=== PATIENT | female | born 1940 | race Caucasian/White ===

== ENCOUNTER → 2023-05-30 06:54 | Outpatient (REF) | payer MEDICARE, OTHER, SELFPAY | LOC: HWRAD 06:54 | PROVIDERS: ATTENDING PHYSICIAN Nurse Practitioner | DX: K59.09 Other constipation (principal); Z87.19 Personal history of other diseases of the digestive system | CPT/HCPCS: 76700 ==

== ENCOUNTER → 2023-09-21 11:32 | Outpatient (REF) | payer MEDICARE, OTHER, SELFPAY ==
[2023-09-21 12:29] LABS: % Basophils 0.8 % (0-2); % Eosinophils 5.1 % (0-6); % Immature Granulocytes 0.2 % (0-0.5); % Lymphocytes 44.8 % (20.5-51.1); % Monocytes 8.3 % (1.7-9.3); % Neutrophils 40.8 % (42.2-75.2); Absolute Basophils 0.1 10^3/uL (0-0.2); Absolute Eosinophils 0.3 10^3/uL (0-0.7); Absolute Lymphocytes 2.8 10^3/uL (1.2-3.4); Absolute Monocytes 0.5 10^3/uL (0.1-0.6); Absolute Neutrophils 2.6 10^3/uL (1.4-6.5); Hematocrit 37.7 % (37.0-47.0); Hemoglobin 12.3 g/dL (12.0-16.0); Mean Corp Hgb Conc. 32.6 g/dL (33.0-37.0); Mean Corpuscular Hgb 30.4 pg (27.0-31.0); Mean Corpuscular Volume 93.1 fL (81.0-99.0); Nucleated Red Blood Cells % 0 %; Platelet Count 275 10^3/uL (130-400); Red Blood Cell Count 4.05 10^6/uL (4.20-5.40); Red Cell Dist. Width 13.1 % (11.5-14.5); White Blood Cell Count 6.3 10^3/uL (4.8-10.8)
[2023-09-21 13:36] LABS: ALT (SGPT) 20 U/L (0-35); AST (SGOT) 39 U/L (14-36); Albumin 4.3 g/dl (3.5-5.0); Alkaline Phosphatase 119 U/L (38-126); Blood Urea Nitrogen 23 mg/dl (7-17); Calcium 9.3 mg/dl (8.4-10.2); Carbon Dioxide 30 mmol/L (22-30); Chloride 98 mmol/L (98-107); Glucose 87 mg/dl (70-99); Potassium 5.3 mmol/L (3.5-5.1); Sodium 136 mmol/L (135-145); Total Bilirubin 0.3 mg/dl (0.2-1.3); eGFR 55.21
[2023-09-21 14:00] LABS: TSH Reflex To Free T4 1.77 uIU/ml (0.47-4.68)
[2023-09-23 00:28] LABS: Endomysial IgA Antibody Titer <1:10 (<1:10)
[2023-09-24 00:16] LABS: IgA 172 mg/dl (70-400)
== END ==
LOC: REG 11:32
PROVIDERS: ATTENDING PHYSICIAN Internal Medicine Gastroenterology; FAMILY PHYSICIAN Internal Medicine
DX: R10.9 Unspecified abdominal pain (principal); K59.09 Other constipation
CPT/HCPCS: 36415; 80053; 82784; 83516; 84443; 85025; 86231

== ENCOUNTER → 2023-09-28 11:48 | Outpatient (REF) | payer MEDICARE, OTHER, SELFPAY | LOC: REG 11:48 | PROVIDERS: ATTENDING PHYSICIAN Internal Medicine Gastroenterology; FAMILY PHYSICIAN Internal Medicine | DX: R10.9 Unspecified abdominal pain (principal) | CPT/HCPCS: 82705; 83993; 89055 ==

== ENCOUNTER → 2023-11-21 16:54 | Outpatient (REF) | payer MEDICARE, OTHER, SELFPAY | LOC: RAD 16:54 | PROVIDERS: ATTENDING PHYSICIAN Nurse Practitioner; FAMILY PHYSICIAN Internal Medicine | DX: M54.31 Sciatica, right side (principal) | CPT/HCPCS: 72110 ==

== ENCOUNTER → 2023-11-29 06:43 | Day surgery (SDC) | payer MEDICARE, OTHER, SELFPAY | LOC: GI 06:43 | PROVIDERS: ATTENDING PHYSICIAN Internal Medicine Gastroenterology; FAMILY PHYSICIAN Internal Medicine | DX: R10.9 Unspecified abdominal pain (principal); Z53.8 Procedure and treatment not carried out for other reasons | CPT/HCPCS: 43235; G0378 ==

== ENCOUNTER 2023-11-29 10:16 | Emergency (ER) | payer MEDICARE, OTHER, SELFPAY ==
[2023-11-29 10:22] VITALS: BP 205/100
[2023-11-29 11:00] VITALS: BP 195/67
--- NOTE | 2023-11-29 11:00 | ED.GENMED ---
History of Present Illness
General
Chief Complaint: Blood Pressure Problem
Source: patient
Exam Limitations: none
Time Seen by Provider: 11/29/23 10:35
History of Present Illness
History of Present Illness:
83-year-old female scheduled for a colonoscopy today. Noted to have hypertension. Sent for further evaluation. Incidentally patient noted some intermittent left shoulder and upper scapular pain x 4 days. Not exertional. Nonpleuritic. No
shortness of breath or diaphoresis. Feels better moving her arm around. Symptoms have been constant of this left shoulder pain for the last 4 to 5 hours.
Past History
Past History
ED Past Medical History: HTN, Hypercholesterolemia, Other (Diverticulosis) and Other (IBS, dropfoot, vertigo)
ED Past Surgical History: None
Social History
Tobacco: Non-smoker
Alcohol: Occasional
Personal:
Employment: Retired
Family History
Family History: Other (Brother with a cardiomyopathy and pacemaker. Another brother with coronary disease)
Review of Systems
Review of Systems
All Other Systems: Not applicable
Constitutional: Denies fever or chills
Respiratory: Denies trouble breathing
Cardiac: Denies chest pain or syncope
Phy Exam
Physical Exam
Physical Exam:
GENERAL: Alert and oriented in no apparent distress
EYE: Orbits normal.
NECK: Supple, no thyroid palpable
ENT: Pharynx without erythema
CARDIAC: Regular rate and rhythm without any obvious murmurs.
LUNGS: Clear breath sounds,normal
ABDOMEN: Soft, without focal tenderness or distention
NEUROLOGICAL: Alert and oriented , grossly non-focal
SKIN: Warm and dry, no rash or lesion, no discoloration, skin intact.
MUSCULOSKELETAL: No edema,no deformity.Good color
PSYCH: Normal and appropriate interaction.
Course
Orders/Labs/Results
Orders:
Orders
11/29/23 10:32
Electrocardiogram (*1) Urgent
Reason for Study: Hypertension, Benign
EKG- Treatment ONCE
11/29/23 10:46
CT Chest Angio W/wo Iv Contras Urgent
Comment:
Reason For Exam: Nontraumatic left shoulder scapular pain/hypertens
Cardiac Monitoring- Treatment ONCE
IV Insert/Care/Rem.- Treatment PRN
Pulse Ox/cont/shift [RESP] Stat
Quantity: 1
11/29/23 10:50
Basic Metabolic Panel Urgent
Complete Blood Count/With Diff Urgent
Troponin I Urgent
11/29/23 14:26
CR Abdomen - 1 View Urgent
Comment:
Reason For Exam: Left hydronephrosis
Abnormal Lab Results
11/29/23
10:50
Glucose 118 H mg/dl
(70-99)
11/29/23 10:50
11/29/23 10:50
Vital Signs
Initial and Last Documented VS:
Initial Vital Signs
Temp Pulse Resp BP
98.8 F 97 16 205/100
11/29/23 10:22 11/29/23 10:22 11/29/23 10:22 11/29/23 10:22
Last Documented Vital Signs
Temp Pulse Resp BP Pulse Ox
98.8 F 72 16 186/62 97
11/29/23 10:22 11/29/23 13:30 11/29/23 13:30 11/29/23 13:00 11/29/23 13:30
*Critical Care Note
Total Time (30-74mins, 75-104mins- exclusive of procedures): Not Applicable
Update Note
Update Note:
Patient's ED testing is stable. He she has a mild left hydronephrosis on her CT of her chest. Doubt this has anything to do with her left shoulder pain. Shoulder pain based on history is very unlikely to be cardiac. It is not exertional she has
no shortness of breath diaphoresis nausea. It seems to be actually somewhat better when moving her arm in certain positions. She currently has none. However with her hypertension and vague symptoms does warrant cardiac follow-up. I had
recommended repeat troponin and EKG for completeness. Patient does not want to wait. She is aware of the risk. We will plug her into cardiac follow-up. Blood pressure still remains elevated. Again she does not want to wait for further
management of this but we will start her hydrochlorothiazide. Has been elevated prior and she was supposed to be on hydrochlorothiazide.
1515.... Patient returns from x-ray. She does have some delayed dye in the left kidney. She may have some partial obstruction although I am not convinced that the left shoulder pain is coming from her kidney. Patient does not want to wait for any
further testing. My recommendation was to start other blood pressure management here, repeat cardiac testing for completeness and do a plain CT of the abdomen and pelvis to evaluate for this hydronephrosis. Patient absolutely refuses to stay any
longer. She does not want me to give her any blood pressure medication. She states she will take her hydrochlorothiazide which she is supposed to be taking but has not been taking. We will also plug her into cardiology for close follow-up. She
is aware that I do not recommend she leave at this time and is aware of the risks
ED Attending Note
-
Portions of this chart may have been created with voice recognition software.� Occasional wrong word or��sound alike� substitutions may have occurred due to the inherent limitations of voice recognition software.
Discharge Plan
Departure
Patient Disposition: Home (Routine Discharge)
Date of Disposition: 11/29/23
Time of Disposition: 15:16
Patient with high blood pressure during this ER visit?: Yes
Discharge Problem:
Hypertension/systolic, Intermittent left shoulder pain, Left hydronephrosis
Instructions: High Blood Pressure (DC), Chest Pain [facility] Follow Up, BLOOD PRESSURE
Prescriptions:
No Action
chlorpheniramine maleate 4 MG tablet
4 mg PO DAILY
sertraline 50 MG tablet
50 mg PO DAILY
verapamil 120 MG tablet extended release
120 mg PO QPM
losartan 50 MG tablet
50 mg PO QPM
acetaminophen 325 MG tablet
650 mg PO Q4HPRN PRN (Reason: mild pain)
atorvastatin 20 MG tablet
20 mg PO QPM
polyethylene glycol 3350 17 GRAMS powder in packet
17 grams PO DAILY
aspirin 81 MG tablet,delayed release (DR/EC)
81 mg PO DAILY
Kareyacidoph, paracasei,B. lactis 1 EACH capsule
1 ea PO DAILY
Referrals:
Pallavi Dominguez MD [Family Provider] - Follow up in 2-3 days
Activity Restrictions/Additional Instructions:
Take your hydrochlorothiazide immediately when you get home.
Watch your blood pressure closely at home
You should get a call from cardiology first thing tomorrow morning for close follow-up
Return if you change your mind about further workup in the ER. Also return immediately with any unusual headache neurologic symptoms chest pain shortness of breath etc.
As we discussed, there is some dilatation of your left kidney. Cause unknown at this time. I would recommend an outpatient plain CAT scan of your abdomen and pelvis. This can be arranged through your primary physician
Interventions
Interventions:
*Risk Screen - Suicide Last Done: 11/29/23 10:46
*General Assessment Last Done: 11/29/23 10:46
*Neglect/Abuse Screening Last Done: 11/29/23 10:46
ED- Fall Risk Assessment Last Done: 11/29/23 10:46
ED- Cardiac Assessment Last Done: 11/29/23 10:46
ED- Neurological Assessment Last Done: 11/29/23 10:46
ED- Pulmonary Assessment Last Done: 11/29/23 10:46
Discharge Date and Time
Print Language: LATVIAN
[2023-11-29 11:03] LABS: % Basophils 0.7 % (0-2); % Eosinophils 1.3 % (0-6); % Immature Granulocytes 0.2 % (0-0.5); % Lymphocytes 41.8 % (20.5-51.1); % Monocytes 6.3 % (1.7-9.3); % Neutrophils 49.7 % (42.2-75.2); Absolute Eosinophils 0.1 10^3/uL (0-0.7); Absolute Lymphocytes 2.3 10^3/uL (1.2-3.4); Absolute Monocytes 0.3 10^3/uL (0.1-0.6); Absolute Neutrophils 2.7 10^3/uL (1.4-6.5); Hematocrit 39.4 % (37.0-47.0); Hemoglobin 13.5 g/dL (12.0-16.0); Mean Corp Hgb Conc. 34.3 g/dL (33.0-37.0); Mean Corpuscular Hgb 30.3 pg (27.0-31.0); Mean Corpuscular Volume 88.5 fL (81.0-99.0); Mean Platelet Volume 9.9 fL (7.4-10.4); Nucleated Red Blood Cells % 0 %; Platelet Count 280 10^3/uL (130-400); Red Blood Cell Count 4.45 10^6/uL (4.20-5.40); Red Cell Dist. Width 12.9 % (11.5-14.5); White Blood Cell Count 5.4 10^3/uL (4.8-10.8)
[2023-11-29 11:31] LABS: Blood Urea Nitrogen 17 mg/dl (7-17); Calcium 10.2 mg/dl (8.4-10.2); Carbon Dioxide 26 mmol/L (22-30); Chloride 101 mmol/L (98-107); Glucose 118 mg/dl (70-99); Sodium 138 mmol/L (135-145); eGFR > 60.00
[2023-11-29 11:42] LABS: Troponin I 0.013 ng/ml
[2023-11-29 12:58] VITALS: BP 185/75
[2023-11-29 13:00] VITALS: BP 186/62
== END 2023-11-29 15:30 | disposition home or self-care (01) ==
LOC: EMR 10:16
PROVIDERS: EMERGENCY PHYSICIAN Emergency Medicine; FAMILY PHYSICIAN Internal Medicine
DX: I10 Essential (primary) hypertension (principal); M25.512 Pain in left shoulder; N13.30 Unspecified hydronephrosis; E78.00 Pure hypercholesterolemia, unspecified; K58.9 Irritable bowel syndrome, unspecified; Z82.49 Family history of ischemic heart disease and other diseases of the circulatory system
CPT/HCPCS: 99284; 71275; 74018; 80048; 84484; 85025; 93005; Q9967

== ENCOUNTER → 2024-01-02 14:29 | Outpatient (REF) | payer MEDICARE, OTHER, SELFPAY ==
[2024-01-02 15:08] LABS: % Basophils 0.5 % (0-2); % Eosinophils 1.7 % (0-6); % Immature Granulocytes 0.2 % (0-0.5); % Lymphocytes 45.3 % (20.5-51.1); % Monocytes 9.3 % (1.7-9.3); Absolute Eosinophils 0.1 10^3/uL (0-0.7); Absolute Lymphocytes 2.6 10^3/uL (1.2-3.4); Absolute Monocytes 0.5 10^3/uL (0.1-0.6); Absolute Neutrophils 2.5 10^3/uL (1.4-6.5); Hematocrit 37.6 % (37.0-47.0); Hemoglobin 12.7 g/dL (12.0-16.0); Mean Corp Hgb Conc. 33.8 g/dL (33.0-37.0); Mean Corpuscular Hgb 30.2 pg (27.0-31.0); Mean Corpuscular Volume 89.3 fL (81.0-99.0); Mean Platelet Volume 9.7 fL (7.4-10.4); Nucleated Red Blood Cells % 0 %; Platelet Count 358 10^3/uL (130-400); Red Blood Cell Count 4.21 10^6/uL (4.20-5.40); White Blood Cell Count 5.8 10^3/uL (4.8-10.8)
[2024-01-02 15:16] LABS: Blood Urea Nitrogen 20 mg/dl (7-17); Calcium 9.6 mg/dl (8.4-10.2); Carbon Dioxide 27 mmol/L (22-30); Chloride 94 mmol/L (98-107); Glucose 111 mg/dl (70-99); Lactic Acid 0.6 mmol/L (0.7-2.0); Potassium 4.6 mmol/L (3.5-5.1); Sodium 135 mmol/L (135-145); eGFR 55.21
[2024-01-02 15:27] LABS: Troponin I < 0.012 ng/ml
== END ==
LOC: RAD 14:29
PROVIDERS: ATTENDING PHYSICIAN Hospitalist; FAMILY PHYSICIAN Internal Medicine
DX: R55 Syncope and collapse (principal); S09.90XA Unspecified injury of head, initial encounter
CPT/HCPCS: 36415; 70450; 80048; 83605; 84484; 85025

== ENCOUNTER → 2024-01-16 14:10 | Outpatient (REF) | payer MEDICARE, OTHER, SELFPAY | LOC: WDC 14:10 | PROVIDERS: ATTENDING PHYSICIAN Internal Medicine | DX: Z12.31 Encounter for screening mammogram for malignant neoplasm of breast (principal) | CPT/HCPCS: 77063; 77067 ==

== ENCOUNTER → 2024-01-18 06:25 | Day surgery (SDC) | payer MEDICARE, OTHER, SELFPAY | LOC: GI 06:25 | PROVIDERS: ATTENDING PHYSICIAN Internal Medicine Gastroenterology | DX: K52.9 Noninfective gastroenteritis and colitis, unspecified (principal); K57.30 Diverticulosis of large intestine without perforation or abscess without bleeding; D12.2 Benign neoplasm of ascending colon; K63.5 Polyp of colon; R10.10 Upper abdominal pain, unspecified; Q39.9 Congenital malformation of esophagus, unspecified; K44.9 Diaphragmatic hernia without obstruction or gangrene; K31.7 Polyp of stomach and duodenum; K31.89 Other diseases of stomach and duodenum; K29.50 Unspecified chronic gastritis without bleeding | CPT/HCPCS: 45380; 43239; 88305; 88342 ==

== ENCOUNTER 2024-05-09 13:56 | Observation (INO) | payer MEDICARE, OTHER, SELFPAY ==
[2024-05-09] VITALS (11 sets, daily range): BP systolic 152–191; BP diastolic 54–98; PULSE 63–76; BMI 21.6
--- NOTE | 2024-05-09 09:16 | ED.GENMED ---
History of Present Illness
General
Chief Complaint: Change Level of Consciousness
Source: patient and ambulance crew
Exam Limitations: none
Time Seen by Provider: 05/09/24 09:10
Nursing documentation reviewed up to this point in time: agreed with
History of Present Illness
History of Present Illness:
pt is a 83 y/o F
known abdominal aortic stenosis, iliac artery stenosis
syncope x 2 this morning
pt was seated in a chair
details are fuzzy
per EMS said she passed out while seated, woke up and passed out a second time; netiehr time was associated with fall/trauma
she recalls feeling nauseated but cannot recall if this was prior to the1st syncope
no vomiting
does have upper R and upper L abdomianl pain, since lastnight
she says she passed out once last week as well;
pt has not had any AC, headche, neck pain, sob, focal weakness, vomiting/diarrhea, rectal bleeding
she says she doesn't feel right
Past History
Past History
ED Past Medical History: HTN, Hypercholesterolemia, Other (Diverticulosis) and Other (IBS, dropfoot, vertigo)
ED Past Surgical History: None
Social History
Tobacco: Non-smoker
Alcohol: Occasional
Personal:
Employment: Retired
Family History
Family History: Other (Brother with a cardiomyopathy and pacemaker. Another brother with coronary disease)
Phy Exam
Physical Exam
Physical Exam:
GENERAL: Alert , in no apparent distress
Head: No signs of trauma
EYE: pupils equal and reactive
NECK: Supple full painless range of motion
ENT: o/p clr, mouth slightly dry
CARDIAC: Bradycardic, no edema, no murmur
LUNGS: Clear breath sounds bilaterally, no acute respiratory distress, no wheezes/rales/rhonchi
ABDOMEN: Soft, without focal tenderness, no r/g, no cvat, normal bowel sounds
NEUROLOGICAL: Alert and oriented, no focal neuro deficits
SKIN: Warm and dry, skin intact.
MUSCULOSKELETAL: No edema, well perfused. neg kathleen's sign
PSYCH: Normal and appropriate interaction.
Course
Orders/Labs/Results
Orders:
Orders
05/09/24 09:04
Electrocardiogram (*1) Urgent
Reason for Study: Syncope
05/09/24 09:05
EKG- Treatment ONCE
05/09/24 09:11
Complete Blood Count/With Diff Urgent
Comprehensive Metabolic Panel Urgent
Free T4 Urgent
Magnesium Urgent
Comment: ADD ON
Manual Differential Urgent
TSH Reflex To Free T4 Urgent
Troponin I Urgent
05/09/24 09:14
Orthostatic VS- Treatment ONCE
D-Dimer Urgent
05/09/24 09:16
CT Chest/abd/pelvis Angio W/wo Urgent
Comment:
Reason For Exam: syncopex2; hx abd aortic stenosis, upper abd pain
05/09/24 09:18
Add On- LAB Urgent
Tests Added?: magnesium, TSH Reflex to Free T4
05/09/24 09:23
CT Head W/o Iv Contrast Urgent
Comment:
Reason For Exam: syncope x 2, hypertensive, doesn't feel right
05/09/24 09:46
0.9% Sodium Chloride 500 ml [Nss] 500 ml IV BOLUS
05/09/24 10:14
COVID-19 Antigen Urgent
Source: Nasal Swab
Influenza A+B Rapid Molecular Urgent
ARIANA Source: Nasal Swab
Specimen Description:
05/09/24 13:17
CARDIOLOGY CONSULT Routine
Consulting Provider: Jaycob Faustin
Was physician already notified: Yes
Reason for consult: Vasovagal /orthostatic syncope, bradycardia
05/09/24 13:18
Admit/Transfer Patient As Directed
Co-Sign Provider:
Level of Care: Observation services
Assign to:: Telemetry
Physician / Group: jey briceno
Diagnosis: orthostatic hypotension, vasovagal syncope, bradycardia
Reason for Telemetry: Arrhythmia
Date to Stop Telemetry: 05/12/24
Time to Stop Telemetry: 11:00
Reason for Hospitalization: orthostatic hypotension, vasovagal syncope, bradycardia
Code Status As Directed
Resuscitation Status: Full Code
05/09/24 13:21
PRN Pain Medication Management As Directed
May give lesser potent ordered pain med per pt: Yes
preference::
Protocol:: Medication orders for pain may be administered in a
manner that supports deferring to patient preference
when the pt is:
- Requesting an ordered lesser potent pain medication.
Least to most potent pain medications are defined
as: acetaminophen < NSAID < tramadol < opioids
(morphine, oxycodone, hydromorphone).
- Requesting a lesser dose of the same medication IF
ORDERED.
- Requesting a less intrusive route of administration
if both routes are prescribed by the provider (PO <
IV).
05/09/24 Dinner
Cholesterol Lowering
At Your Request: Full Participation
Does patient need a safe tray?: No
Cholesterol Lowering: Sodium, 2 Gram
05/09/24 15:25
0.9% Sodium Chloride 1000 ml [Nss] 1,000 ml IV 60 mls/hr
Acetaminophen [Tylenol] 650 mg PO Q4HPRN PRN
05/09/24 15:25
Activity As Directed
Activity Level: With Assistance
Intake/ Output As Directed
Frequency: Per unit guidelines
Vital Signs As Directed
Frequency: Per unit guidelines
Weight As Directed
Frequency: Daily
Ot Eval And Treat Routine
Pt Eval And Treat Routine
Activity Level: With Assistance
DX Deep Vein Thrombosis Video Routine
05/09/24 18:00
Atorvastatin [Lipitor] 20 mg PO QPM
Diltiazem Extended Release [Cardizem Cd] 240 mg PO QPM
05/09/24 20:00
Heparin 5,000 units SC Q12
05/09/24 22:00
Gabapentin [Neurontin] 200 mg PO HS
05/10/24 06:00
Cardiovascular Evaluation IN AM
Complete Blood Count/With Diff IN AM
Comprehensive Metabolic Panel IN AM
Magnesium IN AM
05/10/24 08:00
Chlorpheniramine [Chlortrimeton] 4 mg PO DAILY
Losartan [Cozaar] 100 mg PO DAILY
Magnesium Oxide 250 mg PO DAILY
Pantoprazole [Protonix] 40 mg PO DAILY
Psyllium [Metamucil, Konsyl] 1 packet PO DAILY
Sertraline HCl [Zoloft] 50 mg PO DAILY
05/12/24 11:00
DC Protocol for Telemetry ONCE
Abnormal Lab Results
05/09/24 05/09/24
09:11 09:14
Hct 36.9 L %
(37.0-47.0)
Segmented Neutrophils 21 L %
(42-75)
Lymphocytes (Manual) 65 H %
(20-51)
Monocytes (Manual) 0 L %
(2-9)
Eosinophils (Manual) 8 H %
(0-6)
D-Dimer 0.75 H ug/mlFEU
(0.00-0.50)
BUN 32 H mg/dl
(7-17)
Creatinine 1.2 H mg/dL
(0.6-1.0)
Glucose 194 H mg/dl
(70-99)
AST 39 H U/L
(14-36)
TSH (Reflex) 5.31 H uIU/ml
(0.47-4.68)
05/09/24 09:11
05/09/24 09:11
Vital Signs
Initial and Last Documented VS:
Initial Vital Signs
Pulse Resp BP Pulse Ox
55 17 185/98 100
05/09/24 09:04 05/09/24 09:04 05/09/24 09:04 05/09/24 09:04
Last Documented Vital Signs
Temp Pulse Resp BP Pulse Ox
37.1 C 71 18 187/73 97
05/09/24 15:23 05/09/24 17:31 05/09/24 15:23 05/09/24 17:31 05/09/24 15:23
MDM/Problems Addressed
Differential Diagnosis Includes:
syncope, vasovagal, orthostatic, dysrhtymia,
MDM/Problems Addressed:
nabil jacobo 83 y/o F
h/o htn, hld, syncope in the past; abdom aortic stenosis
sees sangrigoli
passed out while standing, caught her; then helped her to chair, she wasn't fully out and then went out again it sounds like, he had trouble waking her; she passed out last week as well but didnt get seen
her details are fuzzy, she may have had nausea before hand with abdominal pain so may be vasovagal
hr was 40s for EMS, hypertensive
here 180/90, hr 50s; sinus chon, LBBB unchanged
had some cp last night and today waxing and waning upper abd pain;
ct head/c/a/p neg for acute vascular causes; stable vascular disease
orthostatic wtih standing; getting some IVF; first trop 0.024; bun/cr slightly elevated;
will admit for IVF, monitoring; cards consult
d/w ed attending who agreed
*Critical Care Note
Total Time (30-74mins, 75-104mins- exclusive of procedures): Not Applicable
ED Attending Note
-
Portions of this chart may have been created with voice recognition software.� Occasional wrong word or��sound alike� substitutions may have occurred due to the inherent limitations of voice recognition software.
Discharge Plan
Departure
Patient Disposition: Admit
Date of Disposition: 05/09/24
Time of Disposition: 11:21
Admit to: Telemetry
Presentation/result/management discussed w/ accepting MD/DO: Hospitalist
Condition: Fair
Covid-19: Not Applicable
Discharge Problem:
Syncope, Bradycardia
Interventions
Interventions:
*Risk Screen - Suicide Last Done: 05/09/24 16:08
*General Assessment Last Done: 05/09/24 09:08
*Neglect/Abuse Screening Last Done: 05/09/24 09:08
ED- Fall Risk Assessment Last Done: 05/09/24 14:08
*ED COVID-19 Vaccine History Last Done: 05/09/24 09:08
*Nursing Disposition Last Done: 05/09/24 14:08
ED- Cardiac Assessment Last Done: 05/09/24 09:08
ED- Neurological Assessment Last Done: 05/09/24 09:08
ED-Psychological Assessment Last Done: 05/09/24 09:08
ED- Pulmonary Assessment Last Done: 05/09/24 09:08
Discharge Date and Time
Discharge Date/Time: 05/09/24 15:18
[2024-05-09 09:23] LABS: Hematocrit 36.9 % (37.0-47.0); Hemoglobin 12.6 g/dL (12.0-16.0); Mean Corp Hgb Conc. 34.1 g/dL (33.0-37.0); Mean Corpuscular Hgb 29.8 pg (27.0-31.0); Mean Corpuscular Volume 87.2 fL (81.0-99.0); Platelet Count 255 10^3/uL (130-400); Red Blood Cell Count 4.23 10^6/uL (4.20-5.40); White Blood Cell Count 9.1 10^3/uL (4.8-10.8)
[2024-05-09 09:31] LABS: ALT (SGPT) 19 U/L (0-35); AST (SGOT) 39 U/L (14-36); Albumin 4.6 g/dl (3.5-5.0); Alkaline Phosphatase 121 U/L (38-126); Blood Urea Nitrogen 32 mg/dl (7-17); Calcium 9.5 mg/dl (8.4-10.2); Carbon Dioxide 26 mmol/L (22-30); Chloride 99 mmol/L (98-107); Glucose 194 mg/dl (70-99); Sodium 138 mmol/L (135-145); Total Bilirubin 0.5 mg/dl (0.2-1.3); Total Protein 7.2 g/dl (6.3-8.2); eGFR 44.36
[2024-05-09 09:38] LABS: D-Dimer 0.75 ug/mlFEU (0.00-0.50)
[2024-05-09 09:43] LABS: Troponin I 0.024 ng/ml
[2024-05-09 09:54] LABS: Magnesium 1.9 mg/dl (1.6-2.3)
[2024-05-09 10:26] LABS: TSH Reflex To Free T4 5.31 uIU/ml (0.47-4.68)
[2024-05-09 10:36] LABS: COVID-19 Antigen Negative (Negative)
[2024-05-09 10:52] LABS: Absolute Neutrophils -Man Diff 1.9 10^3/uL (1.4-6.5); Atypical Lymphocytes 5 %; Band Neutrophils 0 % (0-3); Eosinophils 8 % (0-6); Lymphocytes 65 % (20-51); Monocytes 0 % (2-9); Normal RBC Morphology Yes; Platelets Checked Yes; Segmented Neutrophils 21 % (42-75)
[2024-05-09 10:53] LABS: Total Cells Counted 100
[2024-05-09] MEDS: NSS 500 IV (10:59)
--- NOTE | 2024-05-09 13:02 | HPS.HSE ---
Family Physician
-
Family Physician: Pallavi Dominguez
Chief Complaint
-
dizzy syncope and near syncope
History of Present Illness
83-year-old female from home where she lives with her Toribio who states she got up this morning she was in the kitchen making tea she had a sense that she was going to pass out so she went over to the table and sat down. She reports her
came back and from walking the dog and she let him know that she had this sensation occurring. She reports to me she has had this ongoing for many years it used to be exacerbated with her IBS which has been stable for the past 6 months
however she is still getting symptoms of this. She was diagnosed with vasovagal syndrome. She reports after she stood up again to go make toast she started to feel the same symptoms of lightheadedness her states she appeared a little bit
more out of it this time so he walked her to sit down in a chair. While sitting in the chair she put her head down on the table but then he states when her head was lying down she would not respond to him and her eyes were closed for possibly a few
minutes while he called 911. Upon EMS arrival they noted her heart rate to be 40 with a blood pressure of 180/90. Patient reports she takes her blood pressure medication of diltiazem 240 mg at night, but then takes her losartan 100 mg and HCTZ
12.5 mg in the a.m. She did not take her morning medications yet. Of note she has been on Prilosec for the past month by Dr. Joselyn Kumar, GI which was making her burning epigastric pain feel better so she decided to stop the medication. She
states last night she had a little bit of burning pain in the upper right epigastric area which has resolved however today she has had 3 episodes of belching while here. She did not advise her GI that she had stopped her Prilosec. She had no
reason for stopping the medication she states she just did it. She denies recent headache, fever, chills, chest pain, palpitations, shortness of breath, cough, abdominal pain, vomiting, diarrhea, urinary symptoms, sick contacts. She has past
medical history of hypertension, HLD, vasovagal syndrome, GERD, HLD, right dropfoot
Medical History
Past Medical History
Past Medical History: Reports Other
Additional Past Medical History:
hypertension
HLD
vasovagal syndrome
GERD
IBS
HLD
right dropfoot
Past Surgical History: Reports Other
Additional Past Surgical History:
Tubal ligation
Tonsillectomy
Social History
Tobacco: Non-smoker
Alcohol: None
Drug: None
Personal:
Living: With Family (toribio)
Employment: Retired
Family History
Family History: Not pertinent
Allergies / Home Medications
Allergies reflects when Allergies were last updated in [facility].
Home Medications with original date entered in [facility]
Allergy/Medication List:
Allergies
Allergy/AdvReac Type Severity Reaction Status Date / Time
azithromycin Allergy 'cause Verified 11/29/23 10:26
stomach
problem'
gluten Allergy Nausea / Verified 11/29/23 10:26
Vomiting
Home Medications
sertraline 50 mg tablet 50 mg PO DAILY 03/11/11
atorvastatin 20 mg tablet 20 mg PO QPM 05/11/17
chlorpheniramine maleate 4 mg tablet 4 mg PO DAILY 05/09/24
diltiazem HCl 240 mg capsule,extended release 24 hr 240 mg PO QPM 05/09/24
gabapentin 100 mg capsule 200 mg PO HS 05/09/24
hydrochlorothiazide 12.5 mg tablet 12.5 mg PO DAILY 05/09/24
ibuprofen 200 mg tablet (Advil) 400 mg PO DAILY 05/09/24
losartan 100 mg tablet 100 mg PO DAILY 05/09/24
magnesium oxide 250 mg PO DAILY 05/09/24
omeprazole 40 mg capsule,delayed release 40 mg PO DAILY 05/09/24
potassium 99 mg tablet 99 mg PO DAILY 05/09/24
psyllium 1 packet PO DAILY 05/09/24
Review of Systems
-
History Source: Patient and Family (toribio)
A 12 point ROS was completed and negative except as noted: Yes
Constitutional: Denies Fever, Fatigue or Chills
EENT: Denies Sore Throat or Runny Nose
Respiratory: Denies Cough or Trouble Breathing
Cardiac: Denies Chest Pain, Diaphoresis, Palpitations or Syncope
Abdomen/GI: Denies Abdominal Pain, Nausea, Vomiting, Diarrhea, Constipated or Bloody Stools
: Denies Dysuria, Frequency, Flank Pain or Incontinence
Musculoskeletal: Denies Joint Pain or Edema
Skin: Denies Itching or Rash
Neurological: Reports Dizzy and Other (near syncope); Denies Headache
Endocrine: Reports No Symptoms
Hematologic/Lymphatic: Reports No Symptoms
Psych: Reports Calm
Physical Exam
Vital Signs
Vital Signs
Temp Pulse Resp BP Pulse Ox
97.7 F 72 16 159/64 94
05/09/24 09:05 05/09/24 12:00 05/09/24 12:04 05/09/24 12:00 05/09/24 10:00
Physical Exam
General: Comfortable and Conversant; No Pain, Fever or Chills
HEENT: NormoCephalic, Anicteric, Moist mucous membranes, PERRLA, [place] Conjunctivae and No Ptosis
Respiratory: Clear; No Wheezes
Cardiac: S1/S2 and Regular Rhythm (bradycardia 55 to reg 72); No Murmur, Rub, Gallop or Peripheral Edema
Breast: Deferred by me
GI: Soft, Non Tender, Non Distended, Normal Bowel Sounds and No Hepatosplenomegaly
Rectal: Deferred by Provider
Genito-urinary: Deferred by me
Musculoskeletal: No Clubbing, No Cyanosis and No Edema
Skin: Warm and Dry; No Rash
Neuro: AO x 3 (slight memory impairment ), No Motor Deficits, Nonfocal/grossly intact, Cranial Nerves Intact and No Sensory Deficits; No Slurred Speech, Facial Droop, Tremors or Sedated
Psych: Calm
Laboratory Results
-
05/09/24 09:11
05/09/24 09:11
Laboratory Results
Total Bilirubin 0.5 mg/dl (0.2-1.3) 05/09/24 09:11
AST 39 U/L (14-36) H 05/09/24 09:11
ALT 19 U/L (0-35) 05/09/24 09:11
Alkaline Phosphatase 121 U/L (38-126) 05/09/24 09:11
Troponin I 0.024 ng/ml 05/09/24 09:11
Impression/Plan
-
Impression/plan:
OBS telemetry
#Dizziness 2/2 orthostatic hypotension
#Syncope 2/2 History of vasovagal syndrome- prodrome nausea dizziness
-2 episodes today brief per lasted briefly while sitting at the table
-Patient given 1 L IV NSS, Will give additional IV NSS 60 cc an hour x [address] chest abdomen pelvis with contrast
Consult-[facility] cardiology
-Troponin negative
-TSH 5.31 with free T4 1
-HOLD HCTZ 12.5 mg Daily
Orthostatic vitals
Supine 191/60, HR 63
Sitting 180/60, HR 64
Standing 159/61, HR 76
EKG : Sinus bradycardia 50 bpm, QTc 459 MS, LBBB old
2D echo 01/03/2023: EF 51%, normal LV S LVSF, no wall abnormalities, moderate LVH, stage I diastolic dysfunction, mild MR, trace AR, mild TR, pulm arterial pressure [address] head: No acute intracranial abnormality
CT chest abdomen pelvis angio with without contrast:
1. No acute findings within the chest, abdomen, or pelvis.
2. Heavily calcified thoracic and abdominal aortas without dissection or other acute aortic pathology.
3. Atrophic right kidney, likely secondary to renal artery stenosis.
4. Large amount of stool within the colon suggestive of constipation.
5. 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
#HX LBBB
#Reported bradycardia by EMS
EMS reports heart rate of 40 on arrival
Heart rate 55-72 bpm on monitor in the ER
-Consult [facility] cardiology
#HTN�benign
159/64
-cont Losartan 100 mg daily
cont Continue diltiazem to 40 mg every afternoon with hold parameters
#GERD
-I Advised patient to resume Prilosec 40 mg in the a.m.(she reports she stopped the meds after 1 month due to feeling better she was not to stop the medication. I advised the patient to speak with her GI specialist Dr. Steiner
#IBS
- Pt reports Stable x 6 months still has diarrhea but doesnt pass out like she used too
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
Dvt proph
- Sq heparin
Full code with arnoldo Hernandez at bedside
--- NOTE | 2024-05-09 13:16 | W.PN.UPDATE ---
Update Note
Progress Note Update
This is an addendum to the H&P written by Cheri De Souza on 05/09/2024. Patient seen and examined independently with SEGMENT ASSEMBLER.
83-year-old female past medical history of IBS, vasovagal syncopal episodes, hypertension, hyperlipidemia, diverticulosis, presenting with dizziness and near syncope and then syncopal episode preceded by nausea.
Heart rate 40s for EMS.
EKG showed sinus bradycardia, left bundle branch block which is old. Troponin negative. D-dimer 0.[address] chest abdomen pelvis CTA which was unremarkable. CT head no acute abnormality. Creatinine of 1.2, baseline of 1.
Patient likely with vasovagal syncopal episode/orthostatic hypotension. Orthostatics positive due to drop in systolic blood pressure from 191-159. Patient given IV fluids which she can continue.
Hold hydrochlorothiazide for now. Continue diltiazem. Telemetry monitoring. Cardiology consulted.
--- NOTE | 2024-05-09 15:10 | CON.CAR ---
Addendum entered and electronically signed by Idris Lopez DO 05/09/24 16:52:
I saw and examined the patient.
The Manager Psychology's note was reviewed and I agree with the note.
Comment:
Patient reporting chronic episodes of lightheadedness occurring in the a.m. typically following positional changes. She notes associated tunnel vision as prodrome. Rare near-syncope. Patient reports this episode prior to arrival, she experienced
prodrome of tunnel vision. She notes lightheadedness. She sat down and then stood back up and sat back down and experienced possible syncope. As mentioned, EMS had noted heart rate 40 bpm with a blood pressure of 180/90 mmHg. Rhythm strips from
this event not available for review however. Patient reports that she had not taken her medications this morning. Patient has a longstanding history of IBS as well.
GENERAL: no acute distress
EYE: sclera anicteric
NECK: Supple, no JVD, no carotid bruit appreciated
ENT: normal nose, moist mucosal membranes
CARDIAC: Regular rate and rhythm, +S1/S2, 2/6 systolic murmur; no rubs, or gallops
CHEST/PULMONARY: Normal effort, clear breath sounds
ABDOMEN: Soft, without focal tenderness or distention
NEUROLOGICAL: Alert and oriented x3
SKIN: Warm and dry, no rash
PSYCH: Normal and appropriate interaction.
Telemetry demonstrates sinus rhythm with left bundle branch block
EKG sinus bradycardia 50 bpm left bundle branch block
A/P as below
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 History sounds like vasovagal syncope. Patient with longstanding sinus bradycardia/sinus rhythm with left bundle branch block.
Discontinue diltiazem (AV beny blocking agent) and start amlodipine for blood pressure control
Hold diltiazem, replete IV fluids/encourage oral intake
Echocardiogram
Monitor on telemetry
Carotid ultrasound
PT/OT/orthostatic vitals
May require outpatient monitoring if unrevealing during hospitalization
Discussed with nursing
Original Note:
Consultation
Consultation Request
Date/Time Consultation Requested: 05/09/2024, 1317
Date/Time Consultation Performed: 05/09/2024, 1510
Requesting Provider: ANTHONY Barker
Performing Provider: ANTHONY Pate for Dr. Faustin
Reason for Consultation: Bradycardia, syncope.
Medical History
-
Chief Complaint: syncope
History of Present Illness:
83-year-old female with history of hypertension, hyperlipidemia, coronary artery disease, left bundle branch block, PVCs (likely outflow tract origin), carotid disease, distal abdominal aortic stenosis presents to ED via EMS after having 2 episodes
this morning of near syncope/syncope. She had woken up and went into the kitchen to make tea when she began to feel like she was going to pass out. She walked to the living room and lay down on the couch for a few minutes and felt better. She got
up and walked back into the kitchen and again felt like she was going to pass out so she sat down in a chair. Her was present and said she appeared 'out of it'. She put her head down on the table and did not respond to him. He called
911. When EMS arrived a heart rate of 40 was noted with blood pressure 180/90. She had not taken her morning meds yet including losartan and HCTZ.
She has had similar episodes in the past and diagnosed with vasovagal syndrome. In December 2023 she was in shower, felt faint, got out and fell, got up and went to her room where she again fainted. She was advised by our office to go to the ED.
She had a head CT which was negative and was seen by her PCP.
She is followed by Dr. Jerad Da Silva and was last seen in August 2023. At that time she was hypertensive and HCTZ 12.5 mg daily was added to her regimen of losartan and Cardizem. She had previously been on HCTZ and had abdominal discomfort with
discontinuation of the medication but continued to have discomfort so med was restarted. She is following GI and on Prilosec.
Her last echocardiogram 12/2022: EF 51%, mild MR, mild TR
ED evaluation: Troponin negative
EKG: Sinus bradycardia, left bundle branch block, heart rate 50 bpm, QTc [address] head no acute intracranial abnormality
Orthostatic vitals: Supine 191/60, heart rate 63, sitting 180/60, heart rate 64, standing 159/61, heart rate 76
Past medical history:
Hypertension
Hyperlipidemia
Coronary artery disease
Left bundle branch block
PVCs (likely outflow track origin)
Carotid disease
Distal abdominal aortic stenosis
Vasovagal syndrome
Past Medical History
Past Medical History: Other (As above in HPI)
Past Surgical History: Other (Epidurals for sciatica, tonsillectomy, endoscopy, colonoscopy)
Social History
Tobacco: Non-Smoker
Family History
Family History: Other (Father with CVA, hypertension, heart disease, mother with dementia, siblings with heart disease)
Allergies / Home Medications
Allergy/AdvReac Type Severity Reaction Status Date / Time
azithromycin Allergy 'cause Verified 11/29/23 10:26
stomach
problem'
gluten Allergy Nausea / Verified 11/29/23 10:26
Vomiting
�Medication �Instructions �Recorded �Confirmed �Type
sertraline 50 mg tablet 50 mg PO DAILY 03/11/11 05/09/24 History
atorvastatin 20 mg tablet 20 mg PO QPM 05/11/17 05/09/24 History
chlorpheniramine maleate 4 mg 4 mg PO DAILY 05/09/24 05/09/24 History
tablet
diltiazem HCl 240 mg 240 mg PO QPM 05/09/24 05/09/24 History
capsule,extended release 24 hr
gabapentin 100 mg capsule 200 mg PO HS 05/09/24 05/09/24 History
hydrochlorothiazide 12.5 mg tablet 12.5 mg PO DAILY 05/09/24 05/09/24 History
ibuprofen 200 mg tablet (Advil) 400 mg PO DAILY 05/09/24 05/09/24 History
losartan 100 mg tablet 100 mg PO DAILY 05/09/24 05/09/24 History
magnesium oxide 250 mg PO DAILY 05/09/24 05/09/24 History
omeprazole 40 mg capsule,delayed 40 mg PO DAILY 05/09/24 05/09/24 History
release
potassium 99 mg tablet 99 mg PO DAILY 05/09/24 05/09/24 History
psyllium 1 packet PO DAILY 05/09/24 05/09/24 History
Review of Systems
-
History Source: Patient
All other systems: Negative unless noted
Physical Exam
Vital Signs
Temp Pulse Resp BP Pulse Ox
97.7 F 68 16 172/54 98
05/09/24 09:05 05/09/24 14:00 05/09/24 14:02 05/09/24 14:00 05/09/24 14:00
Lab Results
05/09/24 09:11
05/09/24 09:11
Troponin I 0.024 ng/ml 05/09/24 09:11
GEN: No distress, awake, Ox3
HEENT: supple, anicteric, mmm
LUNGS: CTA, no wheezes/rales
CV: Reg, S1/S2, 2/6 syst LSB
ABD: soft, BS+, NT/ND
EXT: No edema
NEURO: Gross non-focal
SKIN: No rash
Impression / Plan
-
Primary care provider: Pallavi Dominguez
Primary cryptologist: Jerad Da Silva MD
Impression:
Syncope
Hypertension
Sinus bradycardia
Hyperlipidemia
Coronary artery disease
Left bundle branch block
PVCs (likely outflow track origin)
Carotid disease
Distal abdominal aortic stenosis
Vasovagal syndrome
Previous cardiovascular testing:
Echo 01/03/2023: Normal LV size and function, EF 51%, mild MR, mild TR
Carotid ultrasound 04/2017, less than 50% bilaterally
Plan:
83-year-old female with history of hypertension, hyperlipidemia, coronary artery disease, left bundle branch block, PVCs (likely outflow tract origin), carotid disease, distal abdominal aortic stenosis presents to ED via EMS after having 2 episodes
this morning of near syncope/syncope. EMS noted to have heart rate of 40 and blood pressure of 180/90. Has had similar episodes in past including faintness with a fall when getting out of the shower 12/2023. Hypertension has been managed with
uptitrating doses of diltiazem, currently 240 mg daily, losartan 100 mg daily, and hydrochlorothiazide 12.5 mg daily. ER evaluation notable for acute kidney injury with BUN/creatinine 32/1.2. EKG sinus bradycardia with left bundle branch block.
No significant abnormal findings in CTA chest abdomen pelvis or on head CT.
Syncope
-Hold HCTZ given acute kidney injury
-Stop diltiazem and change to amlodipine so no AV beny blocking properties
-Monitor on telemetry
-Outpatient Holter monitor if no abnormal findings on telemetry
-Could consider loop recorder if monitoring unrevealing and other cause of syncope not determined
-Check echocardiogram
-Check carotid ultrasound given history of carotid artery disease
Data Reviewed
-
EKG: Tracing Personally Visualized and interpreted
Labs: Labs Reviewed by me
[2024-05-09] MEDS: NSS 1000 IV (15:56)
--- NOTE | 2024-05-09 15:57 | PTCARENOTE ---
1520 Pt received from ED via stretcher. Pt ambulated with hand held from this advertising copy writer. Pt has drop foot to right. but steady gait. pt oriented to staff and call light system. Personal items and call light within reach. All needs met.
[2024-05-09] MEDS: CHLORTRIMETON 4 MG PO (16:35)
[2024-05-09] MEDS: NORVASC 10 MG PO (17:31)
[2024-05-09] MEDS: LIPITOR 20 MG PO (17:31)
[2024-05-09] MEDS: HEPARIN 5000 UNITS SC (22:03)
[2024-05-09] MEDS: NEURONTIN 200 MG PO (22:03)
[2024-05-10 03:40] VITALS: BP 160/65
[2024-05-10 06:00] VITALS: BMI 21.5
[2024-05-10 07:56] LABS: Glucose - Point of Care 95 mg/dl (70-99)
[2024-05-10 08:03] VITALS: BP 156/56
[2024-05-10 08:16] LABS: % Basophils 0.4 % (0-2); % Eosinophils 2.7 % (0-6); % Immature Granulocytes 0.4 % (0-0.5); % Lymphocytes 37.4 % (20.5-51.1); % Monocytes 8.5 % (1.7-9.3); % Neutrophils 50.6 % (42.2-75.2); Absolute Eosinophils 0.2 10^3/uL (0-0.7); Absolute Lymphocytes 2.1 10^3/uL (1.2-3.4); Absolute Monocytes 0.5 10^3/uL (0.1-0.6); Absolute Neutrophils 2.8 10^3/uL (1.4-6.5); Hematocrit 37.3 % (37.0-47.0); Hemoglobin 12.2 g/dL (12.0-16.0); Mean Corp Hgb Conc. 32.7 g/dL (33.0-37.0); Mean Corpuscular Hgb 29.3 pg (27.0-31.0); Mean Corpuscular Volume 89.7 fL (81.0-99.0); Mean Platelet Volume 10.2 fL (7.4-10.4); Nucleated Red Blood Cells % 0 %; Platelet Count 235 10^3/uL (130-400); Red Blood Cell Count 4.16 10^6/uL (4.20-5.40); Red Cell Dist. Width 13.1 % (11.5-14.5); White Blood Cell Count 5.5 10^3/uL (4.8-10.8)
[2024-05-10 08:17] LABS: ALT (SGPT) 18 U/L (0-35); AST (SGOT) 37 U/L (14-36); Albumin 4.2 g/dl (3.5-5.0); Alkaline Phosphatase 112 U/L (38-126); Blood Urea Nitrogen 21 mg/dl (7-17); Calcium 9.4 mg/dl (8.4-10.2); Carbon Dioxide 29 mmol/L (22-30); Chloride 100 mmol/L (98-107); Estimated Creatinine Clearance 33 ml/min; Glucose 97 mg/dl (70-99); HDL Cholesterol 99 mg/dl; LDL Cholesterol, Calculated 88 mg/dl; Potassium 4.3 mmol/L (3.5-5.1); Sodium 139 mmol/L (135-145); Total Bilirubin 0.2 mg/dl (0.2-1.3); Total Cholesterol 203 mg/dl (50-199); Total Protein 6.9 g/dl (6.3-8.2); Triglyceride 80 mg/dl (10-149); Very Low Density Lipoprotein 16 mg/dl (0-30); eGFR > 60.00
[2024-05-10] MEDS: PROTONIX 40 MG PO (09:09)
[2024-05-10] MEDS: METAMUCIL, KONSYL 1 PACKET PO (09:09)
[2024-05-10] MEDS: CHLORTRIMETON 4 MG PO (09:10)
[2024-05-10] MEDS: COZAAR 100 MG PO (09:10)
[2024-05-10] MEDS: ZOLOFT 50 MG PO (09:11)
[2024-05-10] MEDS: HEPARIN 5000 UNITS SC (09:11)
--- NOTE | 2024-05-10 09:41 | W.PN.HOSP.TC ---
Addendum entered and electronically signed by Andrew Womack MD 05/10/24 14:07:
Addendum
Patient was seen by mimeograph operator. Discussed with , reviewed the echocardiogram. Discharge instructions discussed with patient, her and her [id number] over the phone.
Total discharge time spent to see the patient, examine the patient, review data and lab results, discuss discharge plan with patient, nursing staff around 65 minutes
Addendum entered and electronically signed by Andrew Womack MD 05/10/24 12:52:
Addendum
MORAIMA, resolving with IVF
End
Original Note:
Today's Communication/Plan
-
Follow with cardiology recommendations
Assessment / Plan
Assessment / Plan
Physical Exam
General: Comfortable and Conversant; No Pain, Fever or Chills
HEENT: NormoCephalic, Anicteric, Moist mucous membranes, PERRLA, [place] Conjunctivae and No Ptosis
Respiratory: Clear; No Wheezes
Cardiac: S1/S2 and Regular Rhythm (bradycardia 55 to reg 72); No Murmur, Rub, Gallop or Peripheral Edema
Breast: Deferred by me
GI: Soft, Non Tender, Non Distended, Normal Bowel Sounds and No Hepatosplenomegaly
Rectal: Deferred by Provider
Genito-urinary: Deferred by me
Musculoskeletal: No Clubbing, No Cyanosis and No Edema
Skin: Warm and Dry; No Rash
Neuro: AO x 3 (slight memory impairment ), No Motor Deficits, Nonfocal/grossly intact, Cranial Nerves Intact and No Sensory Deficits; No Slurred Speech, Facial Droop, Tremors or Sedated
Psych: Calm
# Syncopal episode with dizziness history
Likely vasovagal syncope per history
Holding Cardizem due to Bradycardia. EKG showed sinus bradycardia, left bundle branch block
s/p IVF
No chest pain, negative troponin
Scan of the chest, abdomen and pelvis did not show acute findings
CT head, no acute abnormality
Consulted cardiology, appreciate input
Last Echo 12/2022: LVEF 51%, normal LV S LVSF, no wall abnormalities, moderate LVH, stage I diastolic dysfunction, mild MR, trace AR, mild TR, pulm arterial pressure 24 mmHg
#HTN�benign
c/w Losartan
Started on amlodipine
#GERD
No abdominal pain or nausea.
#IBS
- Pt reports Stable x 6 months still has diarrhea but doesn't pass out like she used too
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
# Lumbar radiculopathy
# Anxious depression
Dvt proph
- Sq heparin
Total time spent to see the patient, examine the patient, review data and lab results, discuss treatment plan with patient, nursing staff around 55 minutes
Anticipated Discharge: Within 24 hours
Subjective/Interval History
-
Date of Service: May 10, 2024
No chest pain
No sob
No fevers
Objective Data
-
Labs:
Laboratory Results
05/10/24
06:31
WBC 5.5
Hgb 12.2
Hct 37.3
Plt Count 235
Sodium 139
Potassium 4.3
Chloride 100
Carbon Dioxide 29
BUN 21 H
Creatinine 0.9
Glucose 97
Calcium 9.4
Total Bilirubin 0.2
AST 37 H
ALT 18
Alkaline Phosphatase 112
Vital Signs:
Vital Signs
Temp Pulse Resp BP Pulse Ox
97.7 F 64 16 156/56 100
05/10/24 08:03 05/10/24 08:03 05/10/24 08:03 05/10/24 08:03 05/10/24 08:03
[2024-05-10 12:00] VITALS: BP 150/57
[2024-05-10 12:49] VITALS: BP 142/80; BP 158/76; BP 171/79; PULSE 100; PULSE 83; PULSE 85
[2024-05-10 12:52] VITALS: BP 142/80; BP 158/76; BP 171/79; PULSE 100; PULSE 83; PULSE 85
[2024-05-10] MEDS: TYLENOL 650 MG PO (12:57)
--- NOTE | 2024-05-10 13:12 | W.PN.CARDCBS ---
Today's Communication / Plan
-
Heart rates have been stable off of diltiazem. Amlodipine added for better blood pressure control.
Would remain off HCTZ.
Blood pressure improved after IV fluids
Monitor orthostatics.
Echocardiogram 05/09/2024 read by me shows preserved LV function with no significant valvular disease and no change from 2022.
monitoring and evaluation advisor without heart block.
Will consider outpatient monitor.
Will arrange outpatient cardiac follow-up.
Patient really wants to go home.
Discussed with nursing and primary service and family at bedside
Impression / Plan
-
Primary care provider: Pallavi Dominguez
Primary healthcare prof: Jerad Da Silva MD
Impression:
Syncope/near syncope
Hypertension
Sinus bradycardia
Hyperlipidemia
Coronary artery disease
Left bundle branch block
PVCs (likely outflow track origin)
Carotid disease
Distal abdominal aortic stenosis
Vasovagal syndrome
Previous cardiovascular testing:
Echo 01/03/2023: Normal LV size and function, EF 51%, mild MR, mild TR
Carotid ultrasound 04/2017, less than 50% bilaterally
Plan:
HPI: 83-year-old female with history of hypertension, hyperlipidemia, coronary artery disease, left bundle branch block, PVCs (likely outflow tract origin), carotid disease, distal abdominal aortic stenosis presents to ED via EMS after having 2
episodes this morning of near syncope/syncope. EMS noted to have heart rate of 40 and blood pressure of 180/90. Has had similar episodes in past including faintness with a fall when getting out of the shower 12/2023. Hypertension has been managed
with uptitrating doses of diltiazem, currently 240 mg daily, losartan 100 mg daily, and hydrochlorothiazide 12.5 mg daily. ER evaluation notable for acute kidney injury with BUN/creatinine 32/1.2. EKG sinus bradycardia with left bundle branch
block. No significant abnormal findings in CTA chest abdomen pelvis or on head CT.
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 History sounds like vasovagal syncope. Patient with longstanding sinus bradycardia/sinus rhythm with left bundle branch block.
Heart rates have been stable off of diltiazem. Amlodipine added for better blood pressure control.
Would remain off HCTZ.
cr improved after IV fluids
Monitor orthostatics.
Echocardiogram 05/09/2024 read by me shows preserved LV function with no significant valvular disease and no change from 2022.
monitoring and evaluation advisor without heart block.
Will consider outpatient monitor.
Will arrange outpatient cardiac follow-up.
Patient really wants to go home.
Discussed with nursing and primary service and family at bedside
Progress Note - Meat Stringer
Subjective
Date of Service: May 10, 2024
Pt seen and examined. No complaints. No chest pain or shortness of breath.
Objective
Labs:
05/10/24 06:31
05/10/24 06:31
Labs
Hgb 12.2 g/dL (12.0-16.0) 05/10/24 06:31
Hct 37.3 % (37.0-47.0) 05/10/24 06:31
Plt Count 235 10^3/uL (130-400) 05/10/24 06:31
Sodium 139 mmol/L (135-145) 05/10/24 06:31
Potassium 4.3 mmol/L (3.5-5.1) 05/10/24 06:31
BUN 21 mg/dl (7-17) H 05/10/24 06:31
Creatinine 0.9 mg/dL (0.6-1.0) 05/10/24 06:31
Glucose 97 mg/dl (70-99) 05/10/24 06:31
Troponins
05/09/24
09:11
Troponin I 0.024
Vital Signs and I&O:
Vital Signs
Temp Pulse Resp BP Pulse Ox
99.3 F 70 16 150/57 99
05/10/24 12:00 05/10/24 12:00 05/10/24 12:00 05/10/24 12:00 05/10/24 12:00
Vital Signs
Temp Pulse Resp BP Pulse Ox
99.3 F 70 16 150/57 99
05/10/24 12:00 05/10/24 12:00 05/10/24 12:00 05/10/24 12:00 05/10/24 12:00
Physical Exam
Physical Exam
General: No acute distress, AAOX3
Neck: Negative JVD
Heart: Regular, Negative S3 positive S1/S2, Negative S4, No murmur
Lungs: CTA b/l, negative wheezes/rales/rhonchi
Abd: Positive BS, NT/ND, neg rebound/rigidity/guarding
Ext: Negative cyanosis/clubbing/edema
Neuro: nonfocal
--- NOTE | 2024-05-10 14:07 | W.DCSUMMARY ---
Discharge Summary
Discharge Data
Date of Admission: 05/09/24
Date of Discharge: 05/10/24
-
Pending Results: No
Hospital Course
83 years old female admitted after syncopal episode. Her syncopal episode was felt to be vasovagal/orthostasis related to dehydration. Patient was evaluated by health and wellness coordinator. EKG did not show acute ischemic changes. Negative troponin.
Echocardiogram showed preserved left ventricular function with no significant changes from prior. Flat Bed Knitter recommended to stop Cardizem and start amlodipine. She kept of hydrochlorothiazide. Repeat blood work showed improvement in renal
function with creatinine down to 0.9. Patient felt better was able to ambulate without dizziness or lightheadedness. Patient remained hemodynamically stable. Heart rate around 70. Patient was discharged home in a stable condition.
Discharge Plan
-
Patient Disposition: Home (Routine Discharge)
Discharge Diagnosis/Procedures: Syncope/near syncope
Hypertension
Sinus bradycardia
MORAIMA, resolved
Stopped diltiazem. Amlodipine added for better blood pressure control.
Remain off HCTZ.
Blood pressure improved after IV fluids
Echocardiogram 05/09/2024 showed preserved LV function with no significant valvular disease and no change from 2022.
Diet: As tolerated and Low Sodium
Referrals:
Jaycob Faustin MD [Active] - in one to two weeks
Pallavi Dominguez MD [Family Provider] -
Prescriptions:
New
amlodipine 10 mg Tablet
10 mg PO QPM Qty: 30 0RF
Continued
sertraline 50 MG tablet
50 mg PO DAILY
atorvastatin 20 MG tablet
20 mg PO QPM
chlorpheniramine maleate 4 mg Tablet
4 mg PO DAILY
psyllium Packet
1 packet PO DAILY
omeprazole 40 mg Capsule,Delayed Release(Dr/Ec)
40 mg PO DAILY
potassium 99 mg Tablet
99 mg PO DAILY
ibuprofen [Advil] 200 mg Tablet
400 mg PO DAILY
gabapentin 100 mg Capsule
200 mg PO HS
losartan 100 mg Tablet
100 mg PO DAILY
magnesium oxide 250 mg magnesium Tablet
250 mg PO DAILY
Discontinued
diltiazem HCl 240 mg Capsule,Extended Release 24hr
240 mg PO QPM
hydrochlorothiazide 12.5 mg Tablet
12.5 mg PO DAILY
Discharge Orders:
Discharge Patient (As Directed); Ordered 05/10/24
Ordered By: Andrew Womack
Discharge Date and Time
Print Language: TONGAN
--- NOTE | 2024-05-10 14:18 | CM ---
Met patient and spouse in room. 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 She lives in 2 level home with 1 step in. Half bath on bail agent. UP 13 steps to bedrooms and full bathrooms. She does not use any DME. has bars on shower door and plans to get
shower bench.
Does not remember name of [facility] provider in past. signed obs letter.
No SNf history.
PCP Dr. Dominguez
Pharmacy: [facility].
PLAN HOme today.
[2024-05-10 15:04] VITALS: BP 126/51
== END 2024-05-10 15:26 | disposition home or self-care (01) ==
LOC: 3 WEST ACU 13:56
PROVIDERS: Clinical Nurse Specialist Family Health; Emergency Medicine; Physician Assistant; ADMITTING PHYSICIAN Hospitalist; ATTENDING PHYSICIAN Internal Medicine; EMERGENCY PHYSICIAN Emergency Medicine; FAMILY PHYSICIAN Internal Medicine; OTHER PHYSICIAN Internal Medicine Cardiovascular Disease
DX: I95.1 Orthostatic hypotension (principal); R41.82 Altered mental status, unspecified; I35.0 Nonrheumatic aortic (valve) stenosis; I70.0 Atherosclerosis of aorta; R11.0 Nausea; N17.9 Acute kidney failure, unspecified; I10 Essential (primary) hypertension; I16.0 Hypertensive urgency; K58.9 Irritable bowel syndrome, unspecified; E78.00 Pure hypercholesterolemia, unspecified; R10.10 Upper abdominal pain, unspecified; R00.1 Bradycardia, unspecified; N26.1 Atrophy of kidney (terminal); M43.16 Spondylolisthesis, lumbar region; R42 Dizziness and giddiness; F41.9 Anxiety disorder, unspecified; F32.A Depression, unspecified; M51.16 Intervertebral disc disorders with radiculopathy, lumbar region; M21.371 Foot drop, right foot; I49.3 Ventricular premature depolarization; E86.0 Dehydration; I25.10 Atherosclerotic heart disease of native coronary artery without angina pectoris; I77.9 Disorder of arteries and arterioles, unspecified; I44.7 Left bundle-branch block, unspecified; K21.9 Gastro-esophageal reflux disease without esophagitis; Z88.1 Allergy status to other antibiotic agents; Z91.018 Allergy to other foods; Z82.49 Family history of ischemic heart disease and other diseases of the circulatory system; Z79.1 Long term (current) use of non-steroidal anti-inflammatories (NSAID); Z91.81 History of falling; Z82.3 Family history of stroke; Z11.52 Encounter for screening for COVID-19
CPT/HCPCS: 70450; 71275; 74174; 80053; 80061; 82962; 83735; 84439; 84443; 84484; 85025; 85379; 87502; 87811; 93005; 93306; 96360; 97162; 97165; 99285; G0378; Q9967

== ENCOUNTER → 2025-03-03 15:23 | Outpatient (REF) | payer MEDICARE, OTHER, SELFPAY | LOC: RAD 15:23 | PROVIDERS: ATTENDING PHYSICIAN Internal Medicine | DX: M79.672 Pain in left foot (principal) | CPT/HCPCS: 73630 ==

== ENCOUNTER → 2025-03-04 12:47 | Outpatient (REF) | payer MEDICARE, OTHER, SELFPAY | LOC: RCS 12:47 | PROVIDERS: ATTENDING PHYSICIAN Internal Medicine | DX: R55 Syncope and collapse (principal) | CPT/HCPCS: 93225; 93226 ==